=== PATIENT | male | born 1970 | race Caucasian/White ===

== ENCOUNTER 2020-06-10 00:58 | Inpatient (IN) | payer OTHER ==
[~2020-06-10] VITALS: Ht 180.3 cm; Wt 67.4 kg
[2020-06-10] VITALS (13 sets, daily range): BP systolic 128–166; BP diastolic 74–93
--- NOTE | 2020-06-10 01:00 | NUR ---
A 49 Y.O MALE TRANSFERRED FROM [facility] WITH GI BLEED TO ROOM 204. PT A/OX4, C/O BACK, RIB, AND SHOULDER PAIN. PT ASSISTED TO BED WITH UNSTEADY GAIT 1PA. PT C/O SOME WEAKNESS. ADMISSION COMPLETE PER PROTOCOL. PT ORIENTED TO UNIT STAFF AND POC. CALL PLACED TO DR RODRIGUEZ FOR ADMIT ORDERS. NO ACTIVE BLEEDING NOTED AT THIS TIME. CALL LIGHT IN REACH. WILL CONT TO MONITOR PT SAFETY AND STATUS. PMRN
[2020-06-10] MEDS ORDERED: HALOPERIDOL LACTATE 5 MG/ML VIAL. IVP PRN (01:45)
[2020-06-10] MEDS ORDERED: diphenhydrAMINE 50 MG/ML VIAL IVP PRN (01:45)
[2020-06-10] MEDS ORDERED: ACETAMINOPHEN 325 MG TABLET. PO PRN (01:45)
[2020-06-10] MEDS ORDERED: cloNIDine HCL 0.1 MG TABLET PO PRN (01:45)
[2020-06-10] MEDS ORDERED: POTASSIUM CL 20MEQ D5-0.45NACL 1,000 ML IV ONE (02:00)
[2020-06-10] MEDS ORDERED: PROCHLORPERAZINE 10 MG/2 ML VIAL. IV PRN (02:00)
[2020-06-10] MEDS: fentaNYL PF VIAL 100 MCG/2 ML VIAL IVP PRN ×3 (02:21→09:07)
[2020-06-10] MEDS: PANTOPRAZOLE IV PUSH 40 MG VIAL. IVP SCH ×3 (02:29→20:22)
[2020-06-10] MEDS ORDERED: MULTIVIT INFUSN,ADULT 4,VIT K 10 ML, THIAMINE INJ 100 MG, FOLIC ACID INJ 1 MG in IV NOR... IV ONE (02:30)
[2020-06-10 04:45] LABS: BASO # 0.1 x10^3/uL (0.0-0.2); BASO % 1 % (0-3); EOS # 0.3 x10^3/uL (0.0-0.7); EOS % 5 % (0-3); LYMPH # 2.3 x10^3/uL (1.0-4.8); LYMPH % 38 % (24-48); MEAN CORPUSCULAR HEMOGLOBIN 27 pg (25-35); MEAN CORPUSCULAR HGB CONC 32 g/dL (31-37); MEAN CORPUSCULAR VOLUME 84 fL (79-100); MONO # 0.6 x10^3/uL (0.0-1.1); MONO % 10 % (0-9); NEUT # 2.8 x10^3/uL (1.8-7.7); NEUT % 46 % (31-73); PLATELET COUNT 101 x10^3/uL (140-400); RED BLOOD COUNT 2.26 x10^6/uL (4.30-5.70); RED CELL DISTRIBUTION WIDTH 20.3 % (11.5-14.5); WHITE BLOOD COUNT 6.1 x10^3/uL (4.0-11.0)
[2020-06-10 05:11] LABS: ALBUMIN 2.5 g/dL (3.4-5.0); ALBUMIN/GLOBULIN RATIO 0.6 (1.0-1.7); CALCIUM 7.3 mg/dL (8.5-10.1); GFR 79.4; MAGNESIUM 2.1 mg/dL (1.8-2.4); POTASSIUM 3.1 mmol/L (3.5-5.1); TOTAL BILIRUBIN 0.3 mg/dL (0.2-1.0); TOTAL PROTEIN 6.5 g/dL (6.4-8.2)
[2020-06-10] MEDS ORDERED: FLUO20CA16 PO (05:26)
[2020-06-10 05:38] LABS: HEMATOCRIT 19.1 % (39.0-53.0)
--- NOTE | 2020-06-10 05:59 | NUR ---
pt hemoglobin 6.0, hematocrit 19.1 dr sneed notified order received to give 2 units prbc and repeat hemogram at noon. pmrn
[2020-06-10 07:20] LABS: ANISOCYTOSIS PRESENT; PLT ESTIMATE DECREASED (ADEQUATE)
--- NOTE | 2020-06-10 08:05 | PDOC1 ---
History and Physical Date of Admission Date of Admission DATE: 06/10/20 TIME: 07:48 Identification/Chief Complaint Chief Complaint Hematemesis Source Source: Chart review, Patient History of Present Illness History of Present Illness Mr Khan is a 49-year-old male with past medical history significant for peptic ulcer disease, hiatal hernia, anemia, gerd, cardiac murmur and heavy alcohol abuse who presented to the [facility] ED on 06/09/2020 with complaints of dizziness and falling for the past 2 days prior to ED visit. He noted he was vomiting blood all day on 06/08/2020, and vomited blood once the morning of and drank some alcohol to help with, he also notes he feels very weak. States he was admitted to [facility] 2 months ago and was told he had 2 stomach ulcers (s/p egd) along with a hiatal hernia, required a blood transfusion at that time. Takes daily iron. Unsure if he has cirrhosis or esophageal varices. On exam complains of bilateral lower abdominal pain and right low back pain. EKG appears normal sinus rhythm 86 bpm, no axis deviation, QTC 516, no T wave inversions, no ST elevations or ST depressions Labs on initial admission showed WBC 6.8, Hb 7.4, platelets 127, K2.5, creatinine 1.5, INR 1, ethanol level 185 at 1818 on 06/09/2020. CXR old left clavicle fracture, Several chronic right rib fractures. CT abdomen shows some concern for pancreatic inflammation. CT head negative for intracranial pathology. CT neck with no fracture. Upon evaluation at [facility] he has repeat labs 8 hours later showing Hb 6, platelets 101, K3.1, CR 1, calcium 7.3, albumin 2.5. He tells me fentanyl does not touch his pain, he is asking for morphine for right-sided chest wall pain. No further hematemesis at this time. Vital signs stable after 2 L normal saline and IV potassium replacement. Past Medical History GI: GERD, GI bleed, Gastritis, Peptic Ulcer disease Psych: Addictions Past Surgical History Past Surgical History: Other (EGD) Family History Family History: High Cholestrol, Hypertension Social History Smoke: <1 pack per day ALCOHOL: heavy Drugs: None Current Medications Current Medications Current Medications Multivitamins 10 ml/Thiamine HCl 100 mg/Folic Acid 1 mg/Sodium Chloride 1,011.2 ml @ 125 mls/ hr 1X ONCE IV ; Start 06/10/20 at 02:30; Stop 06/10/20 at 10:35 Ondansetron HCl (Zofran) 4 mg PRN Q4HRS PRN IV NAUSEA/VOMITING; Start 06/10/20 at 01:45 Acetaminophen (Tylenol) 650 mg PRN Q4HRS PRN PO TEMP OVER 100.4F OR MILD PAIN; Start 06/10/20 at 01:45 Lorazepam (Ativan) 2 mg PRN Q1HR PRN PO For CIWA 8-14; Start 06/10/20 at 01:45 Lorazepam (Ativan Inj) 1 mg PRN Q1HR PRN IV For CIWA 8-14; Start 06/10/20 at 01:45 Haloperidol Lactate (Haldol Inj) 5 mg PRN Q4HRS PRN IVP Hallucinatns,Confusn,Delirium; Start 06/10/20 at 01:45 Diphenhydramine HCl (Benadryl) 25 mg PRN Q15MIN PRN IVP EPS symptoms 2'Haldol admin; Start 06/10/20 at 01:45 Clonidine HCl (Catapres) 0.1 mg PRN Q1HR PRN PO SBP > 180 or DBP > 100, MRX3; Start 06/10/20 at 01:45 Pantoprazole Sodium (PROTONIX VIAL for IV PUSH) 40 mg BID IVP Last administered on 06/10/20at 02:29; Start 06/10/20 at 02:00 Potassium Chloride/Dextrose/ Sod Cl 1,000 ml @ 100 mls/hr Q10H ONCE IV Last administered on 06/10/20at 02:22; Start 06/10/20 at 02:00; Stop 06/10/20 at 11:59 Fentanyl Citrate (Fentanyl 2ml Vial) 25 mcg PRN Q2HR PRN IVP PAIN Last administered on 06/10/20at 06:24; Start 06/10/20 at 01:45 Prochlorperazine Edisylate (Compazine) 10 mg PRN Q6HRS PRN IV NAUSEA/VOMITING; Start 06/10/20 at 02:00 Active Scripts Active Reported Prozac (Fluoxetine Hcl) 20 Mg Capsule 20 Mg PO DAILY Allergies Allergies: Coded Allergies: No Known Drug Allergies (Unverified , 06/10/20) ROS General: YES: Fatigue, Malaise; No: Chills, Night Sweats, Appetite, Other PSYCHOLOGICAL ROS: YES: Anxiety; No: Behavioral Disorder, Concentration difficultie, Decreased libido, Depression, Disorientation, Hallucinations, Hostility, Irritablity, Memory difficulties, Mood Swings, Obsessive thoughts, Physical abuse, Sexual abuse, Sleep disturbances, Suicidal ideation, Other Eyes: No Blurry vision, No Decreased vision, No Double vision, No Dry eyes, No Excessive tearing, No Eye Pain, No Itchy Eyes, No Loss of vision, No Photophobia, No Scotomata, No Uses contacts, No Uses glasses, No Other HEENT: No: Heacaches, Visual Changes, Hearing change, Nasal congestion, Nasal discharge, Oral lesions, Sinus pain, Sore Throat, Epistaxis, Sneezing, Snoring, Tinnitus, Vertigo, Vocal changes, Other ALLERGY AND IMMUNOLOGY: No: Hives, Insect Bite Sensitivity, Itchy/Watery Eyes, Nasal Congestion, Post Nasal Drip, Seasonal Allergies, Other Hematological and Lymphatic: YES: Bleeding Problems; No: Blood Clots, Blood Transfusions, Brusing, Night Sweats, Pallor, Swollen Lymph Nodes, Other ENDOCRINE: No: Breast Changes, Galactorrhea, Hair Pattern Changes, Hot Flashes, Malaise/lethargy, Mood Swings, Palpitations, Polydipsia/polyuria, Skin Changes, Temperature Intolerance, Unexpected Weight Changes, Other Breast: No New/Changing Breast Lumps, No Nipple changes, No Nipple discharge, No Other Respiratory: YES: Cough; No: Hemoptysis, Orthopnea, Pleuritic Pain, Shortness of breath, SOB with excertion, Sputum Changes, Stridor, Tachypnea, Wheezing, Other Cardiovascular: yes Chest Pain; No Palpitations, No Orthopnea, No Paroxysmal Noc. Dyspnea, No Edema, No Lt Headedness, No Other Gastrointestinal: Yes Nausea, Yes Vomiting, Yes Abdominal Pain, Yes Melena Genitourinary: No Dysuria, No Frequency, No Incontinence, No Hematuria, No Retention, No Discharge, No Urgency, No Pain, No Flank Pain, No Other, No , No , No , No , No , No , No Musculoskeletal: No Gait Disturbance, No Joint Pain, No Joint Stiffness, No Joint Swelling, No Muscle Pain, No Muscular Weakness, No Pain In:, No Swelling In:, No Other Neurological: No Behavorial Changes, No Bowel/Bladder ControlChng, No Confusion, No Dizziness, No Gait Disturbance, No Headaches, No Impaired Coord/balance, No Memory Loss, No Numbness/Tingling, No Seizures, No Speech Problems, No Tremors, No Visual Changes, No Weakness, No Other Skin: No Dry Skin, No Eczema, No Hair Changes, No Lumps, No Mole Changes, No M ottling, No Nail Changes, No Pruritus, No Rash, No Skin Lesion Changes, No Other, No Acne Physical Exam General: Alert, Cooperative, moderate distress HEENT: PERRLA, EOMI, Other (Bruising on face, nasal bridge, blood in mouth) Lungs: Other (Scattered expiratory wheezes) Heart: S1S2, RRR, no thrills, no rubs, murmurs (2/6 LILI) Abdomen: Normal bowel sounds, Soft, No hepatosplenomegaly, No masses, Other (Epigastric tenderness) Extremities: No clubbing, No cyanosis, No edema, Normal pulses, No t enderness/swelling Skin: No rashes, No breakdown, No significant lesion Neuro: Normal speech, Strength at 5/5 X4 ext, Normal tone, Sensation intact, Cranial nerves 3-12 NL, Reflexes 2+ Psych/Mental Status: Mental status NL, Mood NL Vitals Vitals Vital Signs Date Time Temp Pulse Resp B/P (MAP) Pulse Ox O2 Delivery O2 Flow Rate FiO2 06/10/20 07:25 97.8 72 12 140/80 97.8 06/10/20 07:17 99 Room Air Labs Labs Laboratory Tests Test 06/10/20 04:10 White Blood Count 6.1 x10^3/uL (4.0-11.0) Red Blood Count 2.26 x10^6/uL (4.30-5.70) Hemoglobin 6.0 g/dL (13.0-17.5) Hematocrit 19.1 % (39.0-53.0) Mean Corpuscular Volume 84 fL (79-100) Mean Corpuscular Hemoglobin 27 pg (25-35) Mean Corpuscular Hemoglobin Concent 32 g/dL (31-37) Red Cell Distribution Width 20.3 % (11.5-14.5) Platelet Count 101 x10^3/uL (140-400) Neutrophils (%) (Auto) 46 % (31-73) Lymphocytes (%) (Auto) 38 % (24-48) Monocytes (%) (Auto) 10 % (0-9) Eosinophils (%) (Auto) 5 % (0-3) Basophils (%) (Auto) 1 % (0-3) Neutrophils # (Auto) 2.8 x10^3/uL (1.8-7.7) Lymphocytes # (Auto) 2.3 x10^3/uL (1.0-4.8) Monocytes # (Auto) 0.6 x10^3/uL (0.0-1.1) Eosinophils # (Auto) 0.3 x10^3/uL (0.0-0.7) Basophils # (Auto) 0.1 x10^3/uL (0.0-0.2) Platelet Estimate Decreased (ADEQUATE) Anisocytosis Present Sodium Level 140 mmol/L (136-145) Potassium Level 3.1 mmol/L (3.5-5.1) Chloride Level 106 mmol/L (98-107) Carbon Dioxide Level 27 mmol/L (21-32) Anion Gap 7 (6-14) Blood Urea Nitrogen 17 mg/dL (8-26) Creatinine 1.0 mg/dL (0.7-1.3) Estimated GFR (Cockcroft-Gault) 79.4 BUN/Creatinine Ratio 17 (6-20) Glucose Level 95 mg/dL (70-99) Calcium Level 7.3 mg/dL (8.5-10.1) Magnesium Level 2.1 mg/dL (1.8-2.4) Total Bilirubin 0.3 mg/dL (0.2-1.0) Aspartate Amino Transf (AST/SGOT) 26 U/L (15-37) Alanine Aminotransferase (ALT/SGPT) 10 U/L (16-63) Alkaline Phosphatase 107 U/L (46-116) Total Protein 6.5 g/dL (6.4-8.2) Albumin 2.5 g/dL (3.4-5.0) Albumin/Globulin Ratio 0.6 (1.0-1.7) Laboratory Tests Test 06/10/20 04:10 White Blood Count 6.1 x10^3/uL (4.0-11.0) Red Blood Count 2.26 x10^6/uL (4.30-5.70) Hemoglobin 6.0 g/dL (13.0-17.5) Hematocrit 19.1 % (39.0-53.0) Mean Corpuscular Volume 84 fL (79-100) Mean Corpuscular Hemoglobin 27 pg (25-35) Mean Corpuscular Hemoglobin Concent 32 g/dL (31-37) Red Cell Distribution Width 20.3 % (11.5-14.5) Platelet Count 101 x10^3/uL (140-400) Neutrophils (%) (Auto) 46 % (31-73) Lymphocytes (%) (Auto) 38 % (24-48) Monocytes (%) (Auto) 10 % (0-9) Eosinophils (%) (Auto) 5 % (0-3) Basophils (%) (Auto) 1 % (0-3) Neutrophils # (Auto) 2.8 x10^3/uL (1.8-7.7) Lymphocytes # (Auto) 2.3 x10^3/uL (1.0-4.8) Monocytes # (Auto) 0.6 x10^3/uL (0.0-1.1) Eosinophils # (Auto) 0.3 x10^3/uL (0.0-0.7) Basophils # (Auto) 0.1 x10^3/uL (0.0-0.2) Platelet Estimate Decreased (ADEQUATE) Anisocytosis Present Sodium Level 140 mmol/L (136-145) Potassium Level 3.1 mmol/L (3.5-5.1) Chloride Level 106 mmol/L (98-107) Carbon Dioxide Level 27 mmol/L (21-32) Anion Gap 7 (6-14) Blood Urea Nitrogen 17 mg/dL (8-26) Creatinine 1.0 mg/dL (0.7-1.3) Estimated GFR (Cockcroft-Gault) 79.4 BUN/Creatinine Ratio 17 (6-20) Glucose Level 95 mg/dL (70-99) Calcium Level 7.3 mg/dL (8.5-10.1) Magnesium Level 2.1 mg/dL (1.8-2.4) Total Bilirubin 0.3 mg/dL (0.2-1.0) Aspartate Amino Transf (AST/SGOT) 26 U/L (15-37) Alanine Aminotransferase (ALT/SGPT) 10 U/L (16-63) Alkaline Phosphatase 107 U/L (46-116) Total Protein 6.5 g/dL (6.4-8.2) Albumin 2.5 g/dL (3.4-5.0) Albumin/Globulin Ratio 0.6 (1.0-1.7) Images Images CXR: No consolidation or pleural effusion. Unchanged heart size. No pneumothorax. Mild linear left basilar atelectasis or scarring. Rightward curvature of the thoracic spine. Irregularity of the left distal clavicle. Chronic left-sided rib fracture. Impression: 1. No acute cardiopulmonary process. 2. Irregularity of the left distal clavicle, may relate to prior trauma. Recommend correlation with point tenderness to evaluate acuity. Dedicated imaging can also further evaluate. CT HEAD AND CERVICAL SPINE WO: Head CT: No intracranial hemorrhage. No mass effect. No hydrocephalus. Moderate brain parenchymal volume loss for age. Mild foci of decreased attenuation within the hemispheric white matter, most often due to chronic microvascular ischemia. Imaged orbits are unremarkable. Imaged paranasal sinuses are clear. Bilateral mastoid effusions. No acute calvarial fracture. Cervical spine CT: Motion degraded evaluation. Reversal normal cervical lordosis. No definite fracture. Chronic T1 mild anterior compression deformity. Mild multilevel degenerative disc changes most prominent C4-C5 and C5-C6. No high-grade canal or neuroforaminal narrowing. Pulmonary emphysema. Impression: Head CT: 1. No acute intracranial abnormality. 2. Moderate brain parenchymal loss for age. Cervical spine CT: 1. Motion degraded examination. No definite acute fracture or subluxation of the cervical spine. If persistent clinical concern, recommend follow-up. CT ABD PELV W/ IV CONTRST ONLY Heart size is normal. No pericardial effusion. Strandy opacities at dependent portion lungs likely representing atelectasis. No pleural effusion. Liver, spleen, gallbladder and adrenals are unremarkable. Mild fat stranding surrounding the pancreatic head. No pancreatic ductal dilatation. No perinephric inflammation or hydronephrosis. No renal or ureteral calculi are identified. Bladder is partially distended and not well evaluated. Prostate is not enlarged. Large and small bowel are unremarkable. Appendix is normal. No free abdominal air or fluid. No obstruction. Abdominal aorta has a normal course and caliber. Abdominal vasculature is patent. No enlarged abdominal lymph nodes are identified. No suspicious osseous lesions or acute fractures. IMPRESSION: Mild fat stranding surrounding the pancreatic head may relate to mild pancreatitis. Correlate with lipase. RIBS RIGHT, SHOULDER 2+V RIGHT Several chronic right rib fractures. No acute displaced rib fractures. Normal alignment of the right glenohumeral and acromioclavicular joints. No fracture. Rightward curvature of the thoracic spine. Impression: 1. No acute osseous abnormality. VTE Prophylaxis Ordered VTE Prophylaxis Devices: Contraindicated VTE Pharmacological Prophylaxi: Contraindicated Assessment/Plan Assessment/Plan A/P: Acute blood loss anemia -likely secondary to upper GI bleed. N.p.o. IV PPI. Consult GI for likely repeat EGD. Transfuse 2 units for precipitous drop from hemoglobin 7.4-6. Maintain telemetry. Low threshold for ICU transfer, if he becomes hemodynamically unstable. UGIB - Concern for hematemesis/upper GI bleed (ddx-alana simons vs borhaves, no free air on cxr) with microcytic anemia YUMIKO (acute kidney injury) -likely vasomotor nephropathy. Improved with IV fluids. Lactic acid of 3.2 - improved with IV fluids Alcohol intoxication -with history of heavy alcohol use use and DTs in the past, will place on CIWA scale with IV Ativan. Hypokalemia -will continue replacement protocol, check magnesium level Fall -once his hemoglobin and bleeding are stable we will have PT assess his gait, I suspect his falls likely due to alcohol intoxication rather than a gait disorder. Abrasion of face -local wound care Severe protein calorie malnutrition -once his upper GI bleeding has resolved will have dietitian discuss dietary changes. If he continues to bleed will consider IV nutrition such as PPN or TPN Acute encephalopathy - metabolic from ETOH intoxication, electrolyte derangement FEN - NPO PPX - SCDs, IV PPI FULL CODE Dispo - inpatient for at least 2 midnights. Justicifation of Admission Dx: Justifications for Admission: Justification of Admission Dx: Yes Acute Renal Failure: 3-Fold Rise in Serum Crea Altered Mental Status: Altered Mental Status Comments: LUIS DUDLEY MD Jun 10, 2020 08:05
[2020-06-10] MEDS: POTASSIUM CHLORIDE 10MEQ 100 ML IV SCH ×2 (09:02→10:11)
[2020-06-10] MEDS: LIDOCAINE (700MG/PATCH) PATCH. TD SCH (10:15)
[2020-06-10] MEDS: MORPHINE SULFATE 4 MG/ML VIAL. IV PRN ×5 (10:16→23:50)
[2020-06-10] MEDS ORDERED: OLAN10TA9 PO (11:36)
[2020-06-10 13:02] LABS: HEMATOCRIT 26.5 % (39.0-53.0); HEMOGLOBIN 8.7 g/dL (13.0-17.5); RED BLOOD COUNT 3.12 x10^6/uL (4.30-5.70); RED CELL DISTRIBUTION WIDTH 18.1 % (11.5-14.5); WHITE BLOOD COUNT 5.8 x10^3/uL (4.0-11.0)
[2020-06-10] MEDS: ONDANSETRON PF 4 MG/2 ML VIAL. IV PRN (13:06)
--- NOTE | 2020-06-10 14:27 | PDOC ---
G I PROGRESS NOTE Reason for Follow-up Hematemsis Subjective Thirsty Physical Exam Lungs clear CV S1 S2 ABD +BS, soft, mild epigastric tenderness to palpation Review of Relevant I have reviewed the following items mauricio (where applicable) has been applied. Labs Laboratory Tests Test 06/10/20 04:10 06/10/20 12:30 White Blood Count 6.1 x10^3/uL (4.0-11.0) 5.8 x10^3/uL (4.0-11.0) Red Blood Count 2.26 x10^6/uL (4.30-5.70) 3.12 x10^6/uL (4.30-5.70) Hemoglobin 6.0 g/dL (13.0-17.5) 8.7 g/dL (13.0-17.5) Hematocrit 19.1 % (39.0-53.0) 26.5 % (39.0-53.0) Mean Corpuscular Volume 84 fL (79-100) 85 fL (79-100) Mean Corpuscular Hemoglobin 27 pg (25-35) 28 pg (25-35) Mean Corpuscular Hemoglobin Concent 32 g/dL (31-37) 33 g/dL (31-37) Red Cell Distribution Width 20.3 % (11.5-14.5) 18.1 % (11.5-14.5) Platelet Count 101 x10^3/uL (140-400) 95 x10^3/uL (140-400) Neutrophils (%) (Auto) 46 % (31-73) Lymphocytes (%) (Auto) 38 % (24-48) Monocytes (%) (Auto) 10 % (0-9) Eosinophils (%) (Auto) 5 % (0-3) Basophils (%) (Auto) 1 % (0-3) Neutrophils # (Auto) 2.8 x10^3/uL (1.8-7.7) Lymphocytes # (Auto) 2.3 x10^3/uL (1.0-4.8) Monocytes # (Auto) 0.6 x10^3/uL (0.0-1.1) Eosinophils # (Auto) 0.3 x10^3/uL (0.0-0.7) Basophils # (Auto) 0.1 x10^3/uL (0.0-0.2) Platelet Estimate Decreased (ADEQUATE) Anisocytosis Present Sodium Level 140 mmol/L (136-145) Potassium Level 3.1 mmol/L (3.5-5.1) Chloride Level 106 mmol/L (98-107) Carbon Dioxide Level 27 mmol/L (21-32) Anion Gap 7 (6-14) Blood Urea Nitrogen 17 mg/dL (8-26) Creatinine 1.0 mg/dL (0.7-1.3) Estimated GFR (Cockcroft-Gault) 79.4 BUN/Creatinine Ratio 17 (6-20) Glucose Level 95 mg/dL (70-99) Calcium Level 7.3 mg/dL (8.5-10.1) Magnesium Level 2.1 mg/dL (1.8-2.4) Total Bilirubin 0.3 mg/dL (0.2-1.0) Aspartate Amino Transf (AST/SGOT) 26 U/L (15-37) Alanine Aminotransferase (ALT/SGPT) 10 U/L (16-63) Alkaline Phosphatase 107 U/L (46-116) Total Protein 6.5 g/dL (6.4-8.2) Albumin 2.5 g/dL (3.4-5.0) Albumin/Globulin Ratio 0.6 (1.0-1.7) Laboratory Tests Test 06/10/20 04:10 06/10/20 12:30 White Blood Count 6.1 x10^3/uL (4.0-11.0) 5.8 x10^3/uL (4.0-11.0) Red Blood Count 2.26 x10^6/uL (4.30-5.70) 3.12 x10^6/uL (4.30-5.70) Hemoglobin 6.0 g/dL (13.0-17.5) 8.7 g/dL (13.0-17.5) Hematocrit 19.1 % (39.0-53.0) 26.5 % (39.0-53.0) Mean Corpuscular Volume 84 fL (79-100) 85 fL (79-100) Mean Corpuscular Hemoglobin 27 pg (25-35) 28 pg (25-35) Mean Corpuscular Hemoglobin Concent 32 g/dL (31-37) 33 g/dL (31-37) Red Cell Distribution Width 20.3 % (11.5-14.5) 18.1 % (11.5-14.5) Platelet Count 101 x10^3/uL (140-400) 95 x10^3/uL (140-400) Neutrophils (%) (Auto) 46 % (31-73) Lymphocytes (%) (Auto) 38 % (24-48) Monocytes (%) (Auto) 10 % (0-9) Eosinophils (%) (Auto) 5 % (0-3) Basophils (%) (Auto) 1 % (0-3) Neutrophils # (Auto) 2.8 x10^3/uL (1.8-7.7) Lymphocytes # (Auto) 2.3 x10^3/uL (1.0-4.8) Monocytes # (Auto) 0.6 x10^3/uL (0.0-1.1) Eosinophils # (Auto) 0.3 x10^3/uL (0.0-0.7) Basophils # (Auto) 0.1 x10^3/uL (0.0-0.2) Platelet Estimate Decreased (ADEQUATE) Anisocytosis Present Sodium Level 140 mmol/L (136-145) Potassium Level 3.1 mmol/L (3.5-5.1) Chloride Level 106 mmol/L (98-107) Carbon Dioxide Level 27 mmol/L (21-32) Anion Gap 7 (6-14) Blood Urea Nitrogen 17 mg/dL (8-26) Creatinine 1.0 mg/dL (0.7-1.3) Estimated GFR (Cockcroft-Gault) 79.4 BUN/Creatinine Ratio 17 (6-20) Glucose Level 95 mg/dL (70-99) Calcium Level 7.3 mg/dL (8.5-10.1) Magnesium Level 2.1 mg/dL (1.8-2.4) Total Bilirubin 0.3 mg/dL (0.2-1.0) Aspartate Amino Transf (AST/SGOT) 26 U/L (15-37) Alanine Aminotransferase (ALT/SGPT) 10 U/L (16-63) Alkaline Phosphatase 107 U/L (46-116) Total Protein 6.5 g/dL (6.4-8.2) Albumin 2.5 g/dL (3.4-5.0) Albumin/Globulin Ratio 0.6 (1.0-1.7) Medications Current Medications Multivitamins 10 ml/Thiamine HCl 100 mg/Folic Acid 1 mg/Sodium Chloride 1,011.2 ml @ 125 mls/ hr 1X ONCE IV Last administered on 06/10/20at 12:58; Start 06/10/20 at 02:30; Stop 06/10/20 at 10:35; Status DC Ondansetron HCl (Zofran) 4 mg PRN Q4HRS PRN IV NAUSEA/VOMITING, 1st CHOICE Last administered on 06/10/20at 13:06; Start 06/10/20 at 01:45 Acetaminophen (Tylenol) 650 mg PRN Q4HRS PRN PO TEMP OVER 100.4F OR MILD PAIN; Start 06/10/20 at 01:45 Lorazepam (Ativan) 2 mg PRN Q1HR PRN PO For CIWA 8-14; Start 06/10/20 at 01:45 Lorazepam (Ativan Inj) 1 mg PRN Q1HR PRN IV For CIWA 8-14; Start 06/10/20 at 01:45 Haloperidol Lactate (Haldol Inj) 5 mg PRN Q4HRS PRN IVP Hallucinatns,Confusn,Delirium; Start 06/10/20 at 01:45 Diphenhydramine HCl (Benadryl) 25 mg PRN Q15MIN PRN IVP EPS symptoms 2'Haldol admin; Start 06/10/20 at 01:45 Clonidine HCl (Catapres) 0.1 mg PRN Q1HR PRN PO SBP > 180 or DBP > 100, MRX3; Start 06/10/20 at 01:45 Pantoprazole Sodium (PROTONIX VIAL for IV PUSH) 40 mg BID IVP Last administered on 06/10/20at 09:06; Start 06/10/20 at 02:00 Potassium Chloride/Dextrose/ Sod Cl 1,000 ml @ 100 mls/hr Q10H ONCE IV Last administered on 06/10/20at 02:22; Start 06/10/20 at 02:00; Stop 06/10/20 at 11:59; Status DC Fentanyl Citrate (Fentanyl 2ml Vial) 25 mcg PRN Q2HR PRN IVP PAIN Last administered on 06/10/20at 09:07; Start 06/10/20 at 01:45; Stop 06/10/20 at 10:00; Status DC Prochlorperazine Edisylate (Compazine) 10 mg PRN Q6HRS PRN IV NAUSEA/VOMITING, 2nd CHOICE; Start 06/10/20 at 02:00 Potassium Chloride/Water 100 ml @ 100 mls/hr Q1H IV Last administered on 06/10/20at 10:11; Start 06/10/20 at 09:00; Stop 06/10/20 at 10:59; Status DC Morphine Sulfate (Morphine Sulfate) 4 mg PRN Q2HR PRN IV PAIN Last administered on 06/10/20at 13:06; Start 06/10/20 at 10:00 Lidocaine (Lidoderm) 1 patch DAILY TD Last administered on 06/10/20at 10:15; Start 06/10/20 at 10:00 Miscellaneous (Lidoderm Patch Removal) 1 ea QHS MC ; Start 06/10/20 at 21:00 Active Scripts Active Reported Olanzapine 10 Mg Tablet 1 Tab PO QHS Vitals/I & O Vital Sign - Last 24 Hours 06/10/20 06/10/20 06/10/20 06/10/20 02:21 02:50 03:09 03:28 Temp 98.2 98.2 Pulse 75 Resp 16 B/P (MAP) 166/74 (104) Pulse Ox 100 O2 Delivery Room Air Room Air Room Air Room Air 06/10/20 06/10/20 06/10/20 06/10/20 06:24 06:55 07:10 07:17 Temp 97.9 97.9 97.9 97.9 Pulse 72 72 Resp 16 16 B/P (MAP) 132/76 132/76 (94) Pulse Ox 99 99 O2 Delivery Room Air Room Air Room Air 06/10/20 06/10/20 06/10/20 06/10/20 07:25 07:30 08:25 09:07 Temp 97.8 97.7 97.8 97.7 Pulse 72 72 Resp 12 14 B/P (MAP) 140/80 128/79 Pulse Ox 99 O2 Delivery Room Air Room Air 06/10/20 06/10/20 06/10/20 06/10/20 09:35 10:08 10:16 10:22 Temp 97.5 97.7 97.5 97.7 Pulse 69 70 Resp 14 16 B/P (MAP) 151/89 157/81 Pulse Ox 99 99 O2 Delivery Room Air Room Air 06/10/20 06/10/20 06/10/20 06/10/20 10:45 11:21 11:23 12:25 Temp 97.7 97.7 97.6 97.7 97.7 97.6 Pulse 67 67 68 Resp 14 14 14 B/P (MAP) 148/89 148/89 (108) 165/91 Pulse Ox 99 99 O2 Delivery Room Air Room Air 06/10/20 13:06 Pulse Ox 99 O2 Delivery Room Air Intake and Output 06/09/20 06/09/20 06/10/20 15:00 23:00 07:00 Intake Total 380 ml Output Total 500 ml Balance -120 ml Problem List Hematemsis- most likely secondary to Lyndsay-simons teat by history and prior EGD with hiatal hernia and PUD. Plan medical therpya for alcohol withdrawal/PPI therapy serial cbcs consider repeat EGD if bleeding persists after covid swab clearance Justicifation of Admission Dx: Justifications for Admission: Justification of Admission Dx: Yes Acute Renal Failure: 3-Fold Rise in Serum Crea Altered Mental Status: Altered Mental Status ALEXSANDRA KIM MD Jun 10, 2020 14:27
[2020-06-10] MEDS: NICOTINE 21MG PATCH. TD SCH (17:18)
[2020-06-10] MEDS: PATCH REMOVAL. MC SCH (20:23)
[2020-06-11 03:23] VITALS: BP 148/75
[2020-06-11] MEDS: MORPHINE SULFATE 4 MG/ML VIAL. IV PRN ×7 (03:51→23:39)
[2020-06-11 05:26] LABS: BASO # 0.1 x10^3/uL (0.0-0.2); BASO % 2 % (0-3); EOS # 0.4 x10^3/uL (0.0-0.7); EOS % 8 % (0-3); HEMOGLOBIN 8.7 g/dL (13.0-17.5); LYMPH # 1.8 x10^3/uL (1.0-4.8); LYMPH % 38 % (24-48); MEAN CORPUSCULAR HEMOGLOBIN 28 pg (25-35); MEAN CORPUSCULAR HGB CONC 32 g/dL (31-37); MEAN CORPUSCULAR VOLUME 86 fL (79-100); MONO # 0.4 x10^3/uL (0.0-1.1); MONO % 9 % (0-9); NEUT # 2.2 x10^3/uL (1.8-7.7); NEUT % 45 % (31-73); PLATELET COUNT 101 x10^3/uL (140-400); RED BLOOD COUNT 3.15 x10^6/uL (4.30-5.70); RED CELL DISTRIBUTION WIDTH 18.1 % (11.5-14.5); WHITE BLOOD COUNT 4.8 x10^3/uL (4.0-11.0)
[2020-06-11 05:37] LABS: PROTHROMBIN TIME PATIENT 14.4 SEC (11.7-14.0)
[2020-06-11 05:44] LABS: ALBUMIN 2.6 g/dL (3.4-5.0); ALBUMIN/GLOBULIN RATIO 0.6 (1.0-1.7); CALCIUM 8.2 mg/dL (8.5-10.1); CREATININE 0.7 mg/dL (0.7-1.3); GFR 119.9; MAGNESIUM 1.7 mg/dL (1.8-2.4); POTASSIUM 3.4 mmol/L (3.5-5.1); TOTAL BILIRUBIN 0.7 mg/dL (0.2-1.0); TOTAL PROTEIN 6.8 g/dL (6.4-8.2)
[2020-06-11 07:00] VITALS: BP 157/81
[2020-06-11] MEDS: PANTOPRAZOLE IV PUSH 40 MG VIAL. IVP SCH (07:52)
[2020-06-11] MEDS: NICOTINE 21MG PATCH. TD SCH (07:52)
[2020-06-11] MEDS: LIDOCAINE (700MG/PATCH) PATCH. TD SCH (07:52)
--- NOTE | 2020-06-11 10:07 | PDOC ---
Date of Service: DATE: 06/11/20 TIME: 10:00 Subjective: Subjective: No bleeding. Abdomen skyler hurts. Can't remember when he last stooled. Doesn't want to eat more. Objective: Vital Signs: Vital Signs Date Time Temp Pulse Resp B/P (MAP) Pulse Ox O2 Delivery O2 Flow Rate FiO2 06/11/20 08:00 Room Air 06/11/20 07:53 16 98 06/11/20 07:00 98.1 84 157/81 (106) 98.1 Labs: Laboratory Tests Test 06/10/20 12:30 06/11/20 04:55 White Blood Count 5.8 x10^3/uL 4.8 x10^3/uL Red Blood Count 3.12 x10^6/uL 3.15 x10^6/uL Hemoglobin 8.7 g/dL 8.7 g/dL Hematocrit 26.5 % 27.0 % Mean Corpuscular Volume 85 fL 86 fL Mean Corpuscular Hemoglobin 28 pg 28 pg Mean Corpuscular Hemoglobin Concent 33 g/dL 32 g/dL Red Cell Distribution Width 18.1 % 18.1 % Platelet Count 95 x10^3/uL 101 x10^3/uL Neutrophils (%) (Auto) 45 % Lymphocytes (%) (Auto) 38 % Monocytes (%) (Auto) 9 % Eosinophils (%) (Auto) 8 % Basophils (%) (Auto) 2 % Neutrophils # (Auto) 2.2 x10^3/uL Lymphocytes # (Auto) 1.8 x10^3/uL Monocytes # (Auto) 0.4 x10^3/uL Eosinophils # (Auto) 0.4 x10^3/uL Basophils # (Auto) 0.1 x10^3/uL Prothrombin Time 14.4 SEC Prothromb Time International Ratio 1.2 Sodium Level 137 mmol/L Potassium Level 3.4 mmol/L Chloride Level 102 mmol/L Carbon Dioxide Level 26 mmol/L Anion Gap 9 Blood Urea Nitrogen 7 mg/dL Creatinine 0.7 mg/dL Estimated GFR (Cockcroft-Gault) 119.9 BUN/Creatinine Ratio 10 Glucose Level 88 mg/dL Calcium Level 8.2 mg/dL Magnesium Level 1.7 mg/dL Total Bilirubin 0.7 mg/dL Aspartate Amino Transf (AST/SGOT) 29 U/L Alanine Aminotransferase (ALT/SGPT) 15 U/L Alkaline Phosphatase 110 U/L Total Protein 6.8 g/dL Albumin 2.6 g/dL Albumin/Globulin Ratio 0.6 PE: GEN: NAD, facial injuries LUNGS: CTAB HEART: RRR ABD: vague BLQ discomfort, keeps hands folded across upper abdomen NEURO/PSYCH: A & O 3, flat A/P: Hematemesis H/o PUD, hiatal hernia Anemia - improved w/ transfusion Thrombocytopenia Hypomagnesemia - per primary Alcohol abuse -- He is not forthcoming. No recurrent bleeding. Does not seem interested in advancing diet. 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 Consider restarting iron. Reviewed w/ Dr. Blanca odom to [facility], recommends AA as outpt. Justicifation of Admission Dx: Justifications for Admission: Justification of Admission Dx: Yes Acute Renal Failure: 3-Fold Rise in Serum Crea Altered Mental Status: Altered Mental Status YESSI OBRIEN Jun 11, 2020 10:07
[2020-06-11 10:52] VITALS: BP 143/81
[2020-06-11] MEDS ORDERED: POTASSIUM CHLORIDE 20 MEQ TABLET.ER. PO ONE (11:00)
[2020-06-11] MEDS ORDERED: MAGNESIUM SULFATE 2GM 50 ML IV ONE (11:00)
[2020-06-11] MEDS: ONDANSETRON PF 4 MG/2 ML VIAL. IV PRN ×2 (11:22→17:45)
--- NOTE | 2020-06-11 12:43 | PDOC ---
[employer] PROGRESS NOTE Date of Service DOS: DATE: 06/11/20 TIME: 12:29 Chief Complaint Chief Complaint Upper GI Bleed Anemia Acute Kidney Injury Alcohol abuse Hypokalemia Lactic acidosis Severe protein calorie malnutrition Acute encephalopathy Electrolyte derangement Peptic ulcer disease History of Present Illness History of Present Illness 06/11/2020 Patient seen and examined Patient is sleepy, but responsive No signs of asterixis No emesis for 24 hrs Discussed with RN Chart reviewed Vitals/I&O Vitals/I&O: Vital Signs Date Time Temp Pulse Resp B/P (MAP) Pulse Ox O2 Delivery O2 Flow Rate FiO2 06/11/20 11:55 Room Air 06/11/20 11:22 18 99 06/11/20 10:52 97.9 75 143/81 (101) 97.9 I & O 06/10/20 06/10/20 06/11/20 15:00 23:00 07:00 Intake Total 20 ml 1000 ml 400 ml Output Total 1600 ml 700 ml 400 ml Balance -1580 ml 300 ml 0 ml Physical Exam General: Alert, Cooperative, mild distress Lungs: Clear Abdomen: Normal bowel sounds, Soft, No hepatosplenomegaly, No masses, Other (Epigastric tenderness) Extremities: No clubbing, No cyanosis, No edema, Normal pulses, No tenderness/swelling Skin: No rashes, No breakdown, Other (Mild abrasions on right side of face) Labs Labs: Laboratory Tests Test 06/10/20 12:30 06/11/20 04:55 White Blood Count 5.8 x10^3/uL (4.0-11.0) 4.8 x10^3/uL (4.0-11.0) Red Blood Count 3.12 x10^6/uL (4.30-5.70) 3.15 x10^6/uL (4.30-5.70) Hemoglobin 8.7 g/dL (13.0-17.5) 8.7 g/dL (13.0-17.5) Hematocrit 26.5 % (39.0-53.0) 27.0 % (39.0-53.0) Mean Corpuscular Volume 85 fL (79-100) 86 fL (79-100) Mean Corpuscular Hemoglobin 28 pg (25-35) 28 pg (25-35) Mean Corpuscular Hemoglobin Concent 33 g/dL (31-37) 32 g/dL (31-37) Red Cell Distribution Width 18.1 % (11.5-14.5) 18.1 % (11.5-14.5) Platelet Count 95 x10^3/uL (140-400) 101 x10^3/uL (140-400) Neutrophils (%) (Auto) 45 % (31-73) Lymphocytes (%) (Auto) 38 % (24-48) Monocytes (%) (Auto) 9 % (0-9) Eosinophils (%) (Auto) 8 % (0-3) Basophils (%) (Auto) 2 % (0-3) Neutrophils # (Auto) 2.2 x10^3/uL (1.8-7.7) Lymphocytes # (Auto) 1.8 x10^3/uL (1.0-4.8) Monocytes # (Auto) 0.4 x10^3/uL (0.0-1.1) Eosinophils # (Auto) 0.4 x10^3/uL (0.0-0.7) Basophils # (Auto) 0.1 x10^3/uL (0.0-0.2) Prothrombin Time 14.4 SEC (11.7-14.0) Prothromb Time International Ratio 1.2 (0.8-1.1) Sodium Level 137 mmol/L (136-145) Potassium Level 3.4 mmol/L (3.5-5.1) Chloride Level 102 mmol/L (98-107) Carbon Dioxide Level 26 mmol/L (21-32) Anion Gap 9 (6-14) Blood Urea Nitrogen 7 mg/dL (8-26) Creatinine 0.7 mg/dL (0.7-1.3) Estimated GFR (Cockcroft-Gault) 119.9 BUN/Creatinine Ratio 10 (6-20) Glucose Level 88 mg/dL (70-99) Calcium Level 8.2 mg/dL (8.5-10.1) Magnesium Level 1.7 mg/dL (1.8-2.4) Total Bilirubin 0.7 mg/dL (0.2-1.0) Aspartate Amino Transf (AST/SGOT) 29 U/L (15-37) Alanine Aminotransferase (ALT/SGPT) 15 U/L (16-63) Alkaline Phosphatase 110 U/L (46-116) Total Protein 6.8 g/dL (6.4-8.2) Albumin 2.6 g/dL (3.4-5.0) Albumin/Globulin Ratio 0.6 (1.0-1.7) Assessment and Plan Assessmemt and Plan ASSESSMENT Upper GI Bleed Anemia Acute Kidney Injury Alcohol abuse Hypokalemia Lactic acidosis Severe protein calorie malnutrition Acute encephalopathy Electrolyte derangement Peptic ulcer disease PLAN Telemetry monitoring Advance diet as tolerated Continue alcohol withdrawal protocol Trend magnesium and potassium Trend hemoglobin IV Protonix DVT prophylaxis Full code Appreciate GI input Comment Review of Relevant I have reviewed the following items mauricio (where applicable) has been applied. Medications: Current Medications Medications (Trade) Dose Ordered Sig/Clif Route PRN Reason Start Time Stop Time Status Last Admin Dose Admin Nicotine (Nicoderm Cq 21mg) 1 patch DAILY TD 06/10/20 17:00 06/11/20 07:52 Magnesium Sulfate 50 ml @ 25 mls/hr 1X ONCE IV 06/11/20 11:00 06/11/20 12:59 06/11/20 11:19 Potassium Chloride (Klor-Con) 40 meq 1X ONCE PO 06/11/20 11:00 06/11/20 11:01 DC 06/11/20 11:19 Justicifation of Admission Dx: Justifications for Admission: Justification of Admission Dx: Yes Acute Renal Failure: 3-Fold Rise in Serum Crea Altered Mental Status: Altered Mental Status RANI HUNG III DO Jun 11, 2020 12:43
--- NOTE | 2020-06-11 14:03 | NUR ---
SS following for discharge planning. SS reviewed pt chart and discussed with pt RN. Pt is self pay. Pt is from home and is currently on room air. Pt on clear liquid diet and needs to advance diet. SS will continue to follow for discharge planning.
[2020-06-11 14:56] VITALS: BP_SYST 129; BP_SYST 144; BP_DIAS 66; BP_DIAS 87
[2020-06-11 19:55] VITALS: BP 152/82
[2020-06-11] MEDS: PATCH REMOVAL. MC SCH (20:43)
[2020-06-11 22:59] VITALS: BP 163/85
[2020-06-12 02:30] VITALS: BP 148/81
[2020-06-12] MEDS: MORPHINE SULFATE 4 MG/ML VIAL. IV PRN ×3 (02:44→08:57)
[2020-06-12 05:20] LABS: BASO % 1 % (0-3); EOS # 0.4 x10^3/uL (0.0-0.7); EOS % 8 % (0-3); HEMATOCRIT 26.6 % (39.0-53.0); HEMOGLOBIN 8.4 g/dL (13.0-17.5); LYMPH # 1.8 x10^3/uL (1.0-4.8); LYMPH % 36 % (24-48); MEAN CORPUSCULAR HEMOGLOBIN 27 pg (25-35); MEAN CORPUSCULAR HGB CONC 32 g/dL (31-37); MEAN CORPUSCULAR VOLUME 87 fL (79-100); MONO # 0.6 x10^3/uL (0.0-1.1); MONO % 13 % (0-9); NEUT # 2.1 x10^3/uL (1.8-7.7); NEUT % 42 % (31-73); PLATELET COUNT 101 x10^3/uL (140-400); RED BLOOD COUNT 3.07 x10^6/uL (4.30-5.70); RED CELL DISTRIBUTION WIDTH 18.6 % (11.5-14.5); WHITE BLOOD COUNT 4.9 x10^3/uL (4.0-11.0)
[2020-06-12 05:37] LABS: CALCIUM 8.1 mg/dL (8.5-10.1); CREATININE 0.8 mg/dL (0.7-1.3); GFR 102.7; POTASSIUM 3.9 mmol/L (3.5-5.1)
[2020-06-12 07:00] VITALS: BP 160/70
[2020-06-12] MEDS ORDERED: PANTOPRAZOLE 40 MG TABLET.DR. PO SCH (07:30)
[2020-06-12] MEDS: NICOTINE 21MG PATCH. TD SCH (07:59)
[2020-06-12] MEDS: LIDOCAINE (700MG/PATCH) PATCH. TD SCH (08:02)
--- NOTE | 2020-06-12 09:53 | PDOC ---
Date of Service: DATE: 06/12/20 TIME: 09:49 Subjective: Subjective: Lower back and shoulder hurts. Denies bleeding. Says ate applesauce and toast. Objective: Objective: Still getting morphine and Ativan. Vital Signs: Vital Signs Date Time Temp Pulse Resp B/P (MAP) Pulse Ox O2 Delivery O2 Flow Rate FiO2 06/12/20 08:57 19 92 Room Air 06/12/20 07:00 97.9 88 160/70 (100) 97.9 Labs: Laboratory Tests Test 06/12/20 03:50 White Blood Count 4.9 x10^3/uL Red Blood Count 3.07 x10^6/uL Hemoglobin 8.4 g/dL Hematocrit 26.6 % Mean Corpuscular Volume 87 fL Mean Corpuscular Hemoglobin 27 pg Mean Corpuscular Hemoglobin Concent 32 g/dL Red Cell Distribution Width 18.6 % Platelet Count 101 x10^3/uL Neutrophils (%) (Auto) 42 % Lymphocytes (%) (Auto) 36 % Monocytes (%) (Auto) 13 % Eosinophils (%) (Auto) 8 % Basophils (%) (Auto) 1 % Neutrophils # (Auto) 2.1 x10^3/uL Lymphocytes # (Auto) 1.8 x10^3/uL Monocytes # (Auto) 0.6 x10^3/uL Eosinophils # (Auto) 0.4 x10^3/uL Basophils # (Auto) 0.0 x10^3/uL Sodium Level 135 mmol/L Potassium Level 3.9 mmol/L Chloride Level 102 mmol/L Carbon Dioxide Level 26 mmol/L Anion Gap 7 Blood Urea Nitrogen 6 mg/dL Creatinine 0.8 mg/dL Estimated GFR (Cockcroft-Gault) 102.7 Glucose Level 93 mg/dL Calcium Level 8.1 mg/dL PE: GEN: NAD LUNGS: CTAB HEART: RRR ABD: non-distended NEURO/PSYCH: lethargic/drowsy - falls asleep while talking A/P: Hematemesis H/o PUD, hiatal hernia Anemia, thrombocytopenia - stable Alcohol abuse HTN -- Stable GI-mclaughlin, DC per primary on PPI. Stop drinking. Justicifation of Admission Dx: Justifications for Admission: Justification of Admission Dx: Yes Acute Renal Failure: 3-Fold Rise in Serum Crea Altered Mental Status: Altered Mental Status YESSI OBRIEN Jun 12, 2020 09:53
[2020-06-12 11:00] VITALS: BP 134/93
[2020-06-12] MEDS: HYDROcodone/APAP 5/325MG 1 TAB TABLET PO PRN ×2 (11:27→16:35)
--- NOTE | 2020-06-12 11:38 | PDOC ---
[employer] PROGRESS NOTE Date of Service DOS: DATE: 06/12/20 TIME: 11:33 Chief Complaint Chief Complaint Upper GI Bleed Anemia Acute Kidney Injury Alcohol abuse Hypokalemia Lactic acidosis Severe protein calorie malnutrition Acute encephalopathy Electrolyte derangement Peptic ulcer disease History of Present Illness History of Present Illness 06/12/2020 Patient seen and examined Patient is sleepy, but responsive Hemoglobin has stabilized to 8.4 Discussed with RN Chart reviewed Planning to discharge to home today 06/11/2020 Patient seen and examined Patient is sleepy, but responsive No signs of asterixis No emesis for 24 hrs Discussed with RN Chart reviewed Vitals/I&O Vitals/I&O: Vital Signs Date Time Temp Pulse Resp B/P (MAP) Pulse Ox O2 Delivery O2 Flow Rate FiO2 06/12/20 11:27 18 92 Room Air 06/12/20 07:00 97.9 88 160/70 (100) 97.9 I & O 06/11/20 06/11/20 06/12/20 15:00 23:00 07:00 Intake Total 400 ml 200 ml 1200 ml Output Total 275 ml 2500 ml 600 ml Balance 125 ml -2300 ml 600 ml Physical Exam General: Alert, Cooperative, No acute distress Lungs: Clear Abdomen: Normal bowel sounds, Soft, No hepatosplenomegaly, No masses, Other (Epigastric tenderness) Extremities: No clubbing, No cyanosis, No edema, Normal pulses, No tenderness/swelling Skin: No rashes, No breakdown, Other (Mild abrasions on right side of face) Labs Labs: Laboratory Tests Test 06/12/20 03:50 White Blood Count 4.9 x10^3/uL (4.0-11.0) Red Blood Count 3.07 x10^6/uL (4.30-5.70) Hemoglobin 8.4 g/dL (13.0-17.5) Hematocrit 26.6 % (39.0-53.0) Mean Corpuscular Volume 87 fL (79-100) Mean Corpuscular Hemoglobin 27 pg (25-35) Mean Corpuscular Hemoglobin Concent 32 g/dL (31-37) Red Cell Distribution Width 18.6 % (11.5-14.5) Platelet Count 101 x10^3/uL (140-400) Neutrophils (%) (Auto) 42 % (31-73) Lymphocytes (%) (Auto) 36 % (24-48) Monocytes (%) (Auto) 13 % (0-9) Eosinophils (%) (Auto) 8 % (0-3) Basophils (%) (Auto) 1 % (0-3) Neutrophils # (Auto) 2.1 x10^3/uL (1.8-7.7) Lymphocytes # (Auto) 1.8 x10^3/uL (1.0-4.8) Monocytes # (Auto) 0.6 x10^3/uL (0.0-1.1) Eosinophils # (Auto) 0.4 x10^3/uL (0.0-0.7) Basophils # (Auto) 0.0 x10^3/uL (0.0-0.2) Sodium Level 135 mmol/L (136-145) Potassium Level 3.9 mmol/L (3.5-5.1) Chloride Level 102 mmol/L (98-107) Carbon Dioxide Level 26 mmol/L (21-32) Anion Gap 7 (6-14) Blood Urea Nitrogen 6 mg/dL (8-26) Creatinine 0.8 mg/dL (0.7-1.3) Estimated GFR (Cockcroft-Gault) 102.7 Glucose Level 93 mg/dL (70-99) Calcium Level 8.1 mg/dL (8.5-10.1) Assessment and Plan Assessmemt and Plan ASSESSMENT Upper GI Bleed Anemia Acute Kidney Injury Alcohol abuse Hypokalemia Lactic acidosis Severe protein calorie malnutrition Acute encephalopathy Electrolyte derangement Peptic ulcer disease PLAN Probable discharge to home today Telemetry monitoring Advance diet as tolerated Iron supplementation PPI PO DVT prophylaxis Full code Appreciate GI input Comment Review of Relevant I have reviewed the following items mauricio (where applicable) has been applied. Medications: Current Medications Medications (Trade) Dose Ordered Sig/Clif Route PRN Reason Start Time Stop Time Status Last Admin Dose Admin Pantoprazole Sodium (Protonix) 40 mg DAILYAC PO 06/12/20 07:30 06/12/20 07:58 Acetaminophen/ Hydrocodone Bitart (Lortab 5/325) 1 tab PRN Q4HRS PRN PO MOD-SEVERE PAIN 06/12/20 11:15 06/12/20 11:27 Justicifation of Admission Dx: Justifications for Admission: Justification of Admission Dx: Yes Acute Renal Failure: 3-Fold Rise in Serum Crea Altered Mental Status: Altered Mental Status RANI HUNG III DO Jun 12, 2020 11:38
[2020-06-12] MEDS ORDERED: OMEP20TA63 PO (12:50)
[2020-06-12] MEDS ORDERED: FERR325T14 PO (12:50)
[2020-06-12] MEDS ORDERED: HYDR-3164 PO (12:59)
--- NOTE | 2020-06-12 13:03 | NUR ---
Home meds: prilosec, ferrous sulfate and olanzapine continued as discharge home meds.
[2020-06-12] MEDS: ONDANSETRON PF 4 MG/2 ML VIAL. IV PRN (13:18)
--- NOTE | 2020-06-12 13:34 | NUR ---
SS following up with discharge planning. SS reviewed pt chart and discussed with pt RN. Pt is from home and is currently on room air. Discharge order on the chart for home with self care. Pt's RN reported pt had one episode of vomiting today. SS will continue to follow for discharge planning.
[2020-06-12 15:00] VITALS: BP 164/90
--- NOTE | 2020-06-12 18:22 | NUR ---
Discharge Note: ARCHIE MALHOTRA [place] Discharge instructions and discharge home medications reviewed with patient and a copy given. All questions have been answered and understanding verbalized. The following instructions and handouts were given: Home meds as directed. prescription for norco, ferrous sulfate, prilosec given to the patient. Avoid alcohol, teaching done. Handout on Peptic ulcer disease, hematemesis, alcohol intoxication Watch out for severe nausea, vomiting, repeat episodes of hematemesis. Discontinued lines and drains: peripheral IV intact, patient tolerated removal, no complications noted. Patient discharged to home with self care via wheelchair, cab transport to residence.
--- NOTE | 2020-07-06 11:40 | DS ---
DATE OF DISCHARGE: 06/12/2020 ADMISSION DIAGNOSES: Gastrointestinal bleed, acute kidney injury, lactic acidosis, alcohol intoxication, hypokalemia, facial abrasions, malnutrition, encephalopathy. DISCHARGE DIAGNOSIS: Resolving gastrointestinal bleed. CONSULTATIONS: GI. PROCEDURES: None. HOSPITAL COURSE: The patient is a pleasant middle-aged male, who presented with hematemesis. We admitted the patient, consulted GI. They felt it was most likely from a Lyndsay-Sifuentes tear. We trend his hemoglobin and give him alcohol withdrawal protocol. In the next few days, he returned to his baseline, we discharged to home. DISPOSITION: Home. ACTIVITY: As tolerated. DIET: Low sodium. MEDICATIONS: Please see the MRAD. TOTAL TIME: 32 minutes. RANI HUNG DO DR: MARI/maya JOB#: [id number] / [id number]
== END 2020-06-12 18:20 | disposition home or self-care (01) | DRG 377 ==
LOC: 2 NORTH 00:58
PROVIDERS: ADMIT Internal Medicine; ATTEND Internal Medicine
PROC: 30233N1 Transfusion of Nonautologous Red Blood Cells into Peripheral Vein, Percutaneous Approach (ICD-10-PCS; principal; 2020-06-10)
DX: K92.0 Hematemesis (principal); E43 Unspecified severe protein-calorie malnutrition; G93.41 Metabolic encephalopathy; D62 Acute posthemorrhagic anemia; E87.2 Acidosis; F10.239 Alcohol dependence with withdrawal, unspecified; J98.11 Atelectasis; M84.48XA Pathological fracture, other site, initial encounter for fracture; N17.9 Acute kidney failure, unspecified; D69.6 Thrombocytopenia, unspecified; E83.42 Hypomagnesemia; S00.81XA Abrasion of other part of head, initial encounter; E87.6 Hypokalemia; F10.229 Alcohol dependence with intoxication, unspecified; F17.210 Nicotine dependence, cigarettes, uncomplicated; I10 Essential (primary) hypertension; J43.9 Emphysema, unspecified; Z82.49 Family history of ischemic heart disease and other diseases of the circulatory system; Z87.19 Personal history of other diseases of the digestive system; K21.9 Gastro-esophageal reflux disease without esophagitis; Z79.899 Other long term (current) drug therapy; Z68.20 Body mass index [BMI] 20.0-20.9, adult; Z20.828 Contact with and (suspected) exposure to other viral communicable diseases; W18.39XA Other fall on same level, initial encounter; Y93.89 Activity, other specified; Y92.89 Other specified places as the place of occurrence of the external cause; Y99.8 Other external cause status
CPT/HCPCS: 36415; 80048; 80053; 83735; 85025; 85027; 85610; 86850; 86900; 86901; 86920; C9113; J2060; J2270; J2405; J3010; J3411; J3475; J3480; J3490; J7030; P9016; G0378